=== PATIENT | male | born 1990 | race Caucasian/White ===

== ENCOUNTER 2023-09-13 00:23 | Emergency (ER) | payer BC, OTHER ==
[2023-09-13 01:47] LABS: BASOPHILS PERCENT AUTO 0.6 % (0.0-1.0); EOSINOPHILS ABSOLUTE AUTO 0.4 K/mm3 (0.0-0.4); EOSINOPHILS PERCENT AUTO 4.9 % (0.0-6.0); HEMATOCRIT 43.2 % (42.0-52.0); HEMOGLOBIN 14.6 gm/dl (14.0-18.0); IMMATURE GRAN ABSOLUTE AUTO 0.02 K/mm3 (0.00-0.05); IMMATURE GRAN PERCENT AUTO 0.3 % (0.0-0.4); LYMPHOCYTES ABSOLUTE AUTO 2.1 K/mm3 (1.0-4.8); LYMPHOCYTES PERCENT AUTO 29.1 % (24.0-44.0); MEAN CORPUSCULAR HEMOGLOBIN 28.9 pg (28.0-32.0); MEAN CORPUSCULAR HGB CONC 33.8 g/dl (32.0-36.0); MEAN CORPUSCULAR VOLUME 85.5 fl (83.0-99.0); MEAN PLATELET VOLUME 10.1 fl (9.4-12.4); MONOCYTES ABSOLUTE AUTO 0.5 K/mm3 (0.0-0.8); MONOCYTES PERCENT AUTO 6.2 % (0.0-8.0); NEUTROPHILS ABSOLUTE AUTO 4.3 K/mm3 (1.8-7.7); NEUTROPHILS PERCENT AUTO 58.9 % (41.0-71.0); PLATELET COUNT,PLT 224 K/mm3 (150-400); RED BLOOD CELL COUNT 5.05 M/mm3 (4.52-5.90); WHITE BLOOD CELL COUNT,WBC 7.21 K/mm3 (3.9-11.3)
[2023-09-13 01:59] LABS: A/G RATIO 1.2 (1-2); ALBUMIN 4.2 g/dl (3.4-5.0); ANION GAP 14.6 (5-15); BILIRUBIN TOTAL 1.1 mg/dL (0.2-1.0); BUN/CREATININE RATIO 11.7 (14-18); CALCIUM 9.1 mg/dL (8.5-10.1); CREATININE 1.2 mg/dL (0.7-1.3); EST CRCL DRUG DOSING (CG) 98.95 mL/min; POTASSIUM,K 3.6 mEq/L (3.5-5.1); PROTEIN TOTAL,TP 7.7 g/dl (6.4-8.2)
[2023-09-13] MEDS: Meclizine 25 MG Tab PO ONE (03:14)
== END 2023-09-13 04:56 | disposition home or self-care (01) ==
LOC: JD.ED 00:23
DX: R42 Dizziness and giddiness (principal)
CPT/HCPCS: 36415; 80053; 83735; 85025; 93005; 99284; A9270

== ENCOUNTER 2024-05-06 13:09 | Emergency (ER) | payer OTHER ==
[2024-05-06] MEDS ORDERED: Sodium Chloride 0.9% 10 ML Syringe FLUSH PRN (13:34)
[2024-05-06] MEDS: Sodium Chloride 0.9% 1,000 ML IV ONE (13:54)
[2024-05-06 14:19] LABS: BASOPHILS ABSOLUTE AUTO 0.1 K/mm3 (0.0-0.2); BASOPHILS PERCENT AUTO 0.5 % (0.0-1.0); EOSINOPHILS ABSOLUTE AUTO 0.2 K/mm3 (0.0-0.4); EOSINOPHILS PERCENT AUTO 2.3 % (0.0-6.0); HEMATOCRIT 46.7 % (42.0-52.0); HEMOGLOBIN 16.2 gm/dl (14.0-18.0); IMMATURE GRAN ABSOLUTE AUTO 0.03 K/mm3 (0.00-0.05); IMMATURE GRAN PERCENT AUTO 0.3 % (0.0-0.4); LYMPHOCYTES ABSOLUTE AUTO 1.1 K/mm3 (1.0-4.8); LYMPHOCYTES PERCENT AUTO 11.9 % (24.0-44.0); MEAN CORPUSCULAR HEMOGLOBIN 28.3 pg (28.0-32.0); MEAN CORPUSCULAR HGB CONC 34.7 g/dl (32.0-36.0); MEAN CORPUSCULAR VOLUME 81.5 fl (83.0-99.0); MEAN PLATELET VOLUME 9.7 fl (9.4-12.4); MONOCYTES ABSOLUTE AUTO 0.4 K/mm3 (0.0-0.8); MONOCYTES PERCENT AUTO 4.4 % (0.0-8.0); NEUTROPHILS ABSOLUTE AUTO 7.6 K/mm3 (1.8-7.7); NEUTROPHILS PERCENT AUTO 80.6 % (41.0-71.0); PLATELET COUNT,PLT 225 K/mm3 (150-400); RED BLOOD CELL COUNT 5.73 M/mm3 (4.52-5.90); WHITE BLOOD CELL COUNT,WBC 9.38 K/mm3 (3.9-11.3)
[2024-05-06 14:57] LABS: A/G RATIO 1.1 (1-2); ALANINE AMINOTRANSFERASE,ALT 28 U/L (16-63); ALBUMIN 4.2 g/dl (3.4-5.0); ALKALINE PHOSPHATASE 107 U/L (46-116); ANION GAP 10.8 (5-15); ASPARTATE AMNIOTRANSFERASE,AST 19 U/L (15-37); BILIRUBIN TOTAL 1.6 mg/dL (0.2-1.0); BLOOD UREA NITROGEN,BUN 11 mg/dL (7-18); BUN/CREATININE RATIO 8.5 (14-18); CALCIUM 9.2 mg/dL (8.5-10.1); CARBON DIOXIDE,CO2 27 mEq/L (21-32); CHLORIDE,CL 105 mEq/L (98-107); CREATININE 1.3 mg/dL (0.7-1.3); EST CRCL DRUG DOSING (CG) 90.49 mL/min; ESTIMATED GFR 74 mL/min (>60); GLUCOSE RANDOM 83 mg/dL (70-99); MAGNESIUM 2.1 mg/dL (1.8-2.4); POTASSIUM,K 3.8 mEq/L (3.5-5.1); PROTEIN TOTAL,TP 8.2 g/dl (6.4-8.2); SODIUM,NA 139 mEq/L (136-145); TSH 1.829 uIU/mL (0.358-3.74)
[2024-05-06 15:10] LABS: TROPONIN I HIGH SENSITIVITY < 4 pg/mL (<=76)
== END 2024-05-06 16:54 | disposition home or self-care (01) ==
LOC: JD.ED 13:09
DX: R00.2 Palpitations (principal); F41.9 Anxiety disorder, unspecified; R42 Dizziness and giddiness; Z79.899 Other long term (current) drug therapy; F17.210 Nicotine dependence, cigarettes, uncomplicated
CPT/HCPCS: 36415; 71045; 80053; 83735; 84443; 84484; 85025; 93005; 99285; J7030; 93010; 99284